=== PATIENT | female | born 1985 | race African-American/Black ===

== ENCOUNTER 2017-11-16 10:32 | Emergency (ER) | payer MEDICAID, OTHER ==
[~2017-11-16] VITALS: Ht 154.9 cm; Wt 99.3 kg
[2017-11-16] MEDS ORDERED: IPRATROPIUM/ALBUTEROL 0.5-3(2.5)MG/3ML NEB HHN ONE (12:00)
[2017-11-16] MEDS ORDERED: KETOROLAC 60MG/2ML VIAL IM ONE (12:00)
[2017-11-16 12:22] LABS: BASOPHILS % 0.8 % (0.0-2.0); CHLORIDE 105 mEq/L (98-107); EOSINOPHILS % 3.4 % (0.0-5.0); HEMATOCRIT. 39.4 % (36.0-48.0); HEMOGLOBIN. 13.1 g/dL (12.0-16.0); LYMPHOCYTES % 49.6 % (20.0-50.0); MEAN CORPUSCULAR HEMOGLOBIN 28.3 pg (28.0-32.0); MEAN CORPUSCULAR VOLUME 85.2 fL (81.0-99.0); MEAN PLATELET VOLUME 9.3 fl (7.4-10.4); MONOCYTES % 5.7 % (2.0-8.0); NEUTROPHILS % 40.5 % (40.0-76.0); PLATELET 245 x1000/uL (130-400); RED BLOOD CELL COUNT 4.62 mill/uL (4.2-5.4); RED CELL DISTRIBUTION WIDTH 15.4 % (11.6-14.6)
[2017-11-16 12:29] LABS: CLARITY URINE SL HAZY (CLEAR); COLOR URINE YELLOW (YELLOW); KETONES URINE NEGATIVE (NEGATIVE); LEUKOCYTE ESTERASE URINE NEGATIVE (NEGATIVE); NITRITE URINE NEGATIVE (NEGATIVE); OCCULT BLOOD URINE NEGATIVE (NEGATIVE); PH URINE 5.5 (4.5-8.0); PROTEIN URINE NEGATIVE (NEGATIVE); SPECIFIC GRAVITY URINE 1.018 (1.005-1.030); UROBILINOGEN URINE 0.2 E.U./dL (0.2-1.0)
[2017-11-16 14:12] VITALS: BP 131/68
== END 2017-11-16 14:16 | disposition home or self-care (01) ==
LOC: ER 12:01
DX: B34.9 Viral infection, unspecified (principal); R03.0 Elevated blood-pressure reading, without diagnosis of hypertension
CPT/HCPCS: 36415; 71045; 80053; 81003; 81025; 85025; 94640; 96372; 99285; J1885; J7620

== ENCOUNTER 2018-06-27 14:26 | Emergency (ER) | payer OTHER ==
[~2018-06-27] VITALS: Ht 154.9 cm; Wt 102.0 kg
[2018-06-27 22:37] VITALS: BP 132/90
[2018-06-27] MEDS ORDERED: MAGNESIUM/ALUMINUM HYDROXIDE/SIMETHICONE 30ML UDC PO ONE (23:00)
== END 2018-06-28 00:10 | disposition home or self-care (01) ==
LOC: ER 14:26
DX: R09.89 Other specified symptoms and signs involving the circulatory and respiratory systems (principal); Z98.890 Other specified postprocedural states
CPT/HCPCS: 70360; 70490; 71046; 81025; 99284